=== PATIENT | male | born 1985 | race African-American/Black ===

== ENCOUNTER 2022-04-18 09:21 | Emergency (ER) | payer OTHER ==
[~2022-04-18] VITALS: Ht 188 cm; Wt 100.5 kg
[2022-04-18 10:37] VITALS: BP 132/87
[2022-04-18] MEDS ORDERED: HYDROcodone-ACET 5/325MG TAB PO ONE (11:45)
[2022-04-18] MEDS ORDERED: TETANUS-DIPTH-ACEL PERTUSSIS 0.5ML SYR Tdap IM ONE (11:45)
[2022-04-18] MEDS ORDERED: ONDANSETRON ODT 4 MG TAB PO ONE (11:45)
[2022-04-18] MEDS ORDERED: CEPH-510 PO (13:34)
[2022-04-18] MEDS ORDERED: IBUP800T27 PO (13:34)
== END 2022-04-18 13:51 | disposition home or self-care (01) ==
LOC: ER 09:21
DX: S51.812A Laceration without foreign body of left forearm, initial encounter (principal); S61.012A Laceration without foreign body of left thumb without damage to nail, initial encounter; W18.09XA Striking against other object with subsequent fall, initial encounter; Y93.89 Activity, other specified; Y92.89 Other specified places as the place of occurrence of the external cause; Y99.8 Other external cause status
CPT/HCPCS: 12004; 73130; 90471; 90715; 99283; Q0162